=== PATIENT | female | born 1940 | race Caucasian/White ===

== ENCOUNTER 2024-09-06 15:35 | Emergency (ER) | payer MEDICARE, BC ==
[2024-09-06 16:02] LABS: BASOPHILS ABSOLUTE AUTO 0.06 K/uL (0.00-0.20); BASOPHILS PERCENT AUTO 0.7 % (0.0-2.0); EOSINOPHILS ABSOLUTE AUTO 0.09 K/uL (0.00-0.50); HEMATOCRIT 38.4 % (34.0-46.0); HEMOGLOBIN 13.1 g/dL (11.7-15.5); IMMATURE GRAN ABSOLUTE AUTO 0.02 10^3/uL (0.00-0.04); IMMATURE GRAN PERCENT AUTO 0.2 % (0.0-0.4); LYMPHOCYTES ABSOLUTE AUTO 2.63 K/uL (0.50-3.50); LYMPHOCYTES PERCENT AUTO 30.6 % (10.0-50.0); MEAN CORPUSCULAR HEMOGLOBIN 30.8 pg (28.2-33.3); MEAN CORPUSCULAR HGB CONC 34.1 g/dL (31.7-36.0); MEAN CORPUSCULAR VOLUME 90.1 fL (84.0-98.0); MONOCYTES ABSOLUTE AUTO 0.45 K/uL (0.00-1.00); MONOCYTES PERCENT AUTO 5.2 % (2.0-14.0); NEUTROPHILS ABSOLUTE AUTO 5.34 K/uL (1.40-7.00); NEUTROPHILS PERCENT AUTO 62.3 % (45.0-80.0); PLATELET COUNT,PLT 299 K/uL (150-350); RED BLOOD CELL COUNT 4.26 M/uL (3.77-5.09); RED CELL DISTRIBUTION WIDTH 12.4 % (11.2-14.1); WHITE BLOOD CELL COUNT,WBC 8.6 K/uL (4.0-10.2)
[2024-09-06 16:25] LABS: ALBUMIN 3.6 g/dL (3.4-5.0); ANION GAP 9.1 meq/L (7-15); BILIRUBIN TOTAL 0.4 mg/dL (0.2-1.0); CARBON DIOXIDE,CO2 24.9 mmol/L (21.0-32.0); CREATININE 0.85 mg/dL (0.51-1.17); EST CRCL DRUG DOSING (CG) 41.05 mL/min; MAGNESIUM 1.8 mg/dL (1.8-2.4); POTASSIUM,K 3.7 mmol/L (3.5-5.1); PROTEIN TOTAL,TP 6.8 g/dL (6.4-8.2); TSH ULTRASENSITIVE 1.237 mIU/mL (0.358-3.740)
== END 2024-09-06 17:00 | disposition home or self-care (01) ==
LOC: LL.ED 15:35
DX: F41.9 Anxiety disorder, unspecified (principal); E78.00 Pure hypercholesterolemia, unspecified; F17.210 Nicotine dependence, cigarettes, uncomplicated; Z79.890 Hormone replacement therapy; Z79.899 Other long term (current) drug therapy
CPT/HCPCS: 36415; 80053; 83735; 84443; 84484; 85025; 93005; 99283